=== PATIENT | female | born 1980 | race Caucasian/White ===

== ENCOUNTER 2016-08-19 09:30 | Inpatient (IN) | payer OTHER ==
[2016-08-19 13:11] LABS: URINE APPEARANCE CLOUDY; URINE BILIRUBIN NEGATIVE (NEGATIVE); URINE COLOR STRAW; URINE GLUCOSE (UA) NEGATIVE (NEGATIVE); URINE KETONE NEGATIVE (NEGATIVE); URINE NITRITE NEGATIVE (NEGATIVE); URINE PROTEIN NEGATIVE (NEGATIVE); URINE UROBILINOGEN NEGATIVE E.U./dl (0.2-1.0)
[2016-08-19 13:12] LABS: URINE BLOOD 3+ (NEGATIVE); URINE LEUK ESTERASE 2+ (NEGATIVE)
[2016-08-19 13:14] LABS: URINE WBC 29 /hpf (3-5)
--- NOTE | 2016-08-19 22:30 | HP ---
Past Medical History - Primary Care Physician PCP:: David Delaney - Admission Chief Complaint: 39 weeks, ama, labor History of Present Illness: 36 yo f , edc by sono 08/21/2016 39.5 weeks in labor, cx 9 cm 100 vx 0 mi fhr cat 1 contraction strong History Source: Patient Limitations to Obtaining History: No Limitations - Past Medical History ...: 4 ...Para: 3 ...Term: 3 ...LMP: 11/14/15 ... Weeks Gestation by Dates: 39.6 ...EDC by Dates: 08/20/16 ...EDC by Sono: 08/21/16 Heme/Onc: Yes: Anemia - Past Surgical History Hx Myomectomy: No Hx Transabdominal Cerclage: No - Smoking History Smoking history: Never smoked - Alcohol/Substance Use Hx Alcohol Use: No - Social History History of Recent Travel: No Home Medications - Allergies Allergies/Adverse Reactions: Allergies Allergy/AdvReac Type Severity Reaction Status Date / Time No Known Allergies Allergy Verified 07/29/16 05:03 - Home Medications Home Medications: Ambulatory Orders Vit/Iron Fumarate/FA [ Tablet] 1 each PO DAILY 03/06/16 Ferrous Sulfate [Feosol] 325 mg PO DAILY 08/19/16 Review of Systems - Review of Systems Constitutional: reports: No Symptoms Eyes: reports: No Symptoms HENT: reports: No Symptoms Neck: reports: No Symptoms Cardiovascular: reports: No Symptoms Respiratory: reports: No Symptoms Gastrointestinal: reports: Abdominal Pain Breasts: reports: No Symptoms Reported Musculoskeletal: reports: No Symptoms Integumentary: reports: No Symptoms Neurological: reports: No Symptoms Endocrine: reports: No Symptoms Hematology/Lymphatic: reports: No Symptoms Psychiatric: reports: No Symptoms Physical Exam - Maternity Vital Signs: Vital Signs Temperature 98.4 F 08/19/16 10:58 Pulse Rate 77 08/19/16 12:41 Respiratory Rate 20 08/19/16 12:41 Blood Pressure 137/66 08/19/16 12:41 O2 Sat by Pulse Oximetry (%) - Abdominal Exam/OB Number of Fetuses: Single Presentation: Vertex Contractions: Yes Regularity: Irregular Intensity: Strong Monitor Mode: External Heart Rate Location: [facility] Category: I Accelerations: Uniform - Vaginal Exam/OB Vaginal Bleediing: Bloody Show Speculum Exam: No Dilatation (cm): 9 cm Effacement (%): 100 Amniotic Membrane Status: Intact Presentation: Vertex/Position Station: 0 - Physical Exam Musculoskeletal: Yes: WNL Extremities: Yes: WNL Edema: Yes Edema: LLE: Trace, RLE: Trace Deep Tendon Reflex Grade: Normal +2 ...Motor Strength: WNL Psychiatric: Yes: WNL Hemorrhage Risk Assessment - Risk Factors High Risk Factors: Yes: None Risk Score: 0 Risk Level: Low Risk Problem List - Problems (1) with 39 completed weeks gestation Code(s): Z3A.39 - 39 WEEKS GESTATION OF (2) Labor established Code(s): VHQ4539 - (3) Advanced maternal age (AMA) in Code(s): XUW7234 - Assessment/Plan plan admit, fh monitoring, GBS negative
[2016-08-19 22:31] VITALS: BMI 32.5
[2016-08-19 22:38] LABS: BASOPHIL 0.6 % (0-2.0); EOSINOPHIL 0.6 % (0-4.5); MCH 23.6 pg (25.7-33.7); MCHC 32.1 g/dl (32.0-36.0); MEAN CELL VOLUME 73.6 fl (80-96); MEAN PLT VOLUME 11.4 fl (7.5-11.1); PLATELET COUNT 232 K/MM3 (134-434); RDW 14.9 % (11.6-15.6); WHITE BLOOD COUNT 9.3 K/mm3 (4.0-10.0)
[2016-08-19] MEDS ORDERED: ELECTROLYTE-148 SOLN 1,000 ML IV SCH (22:45)
[2016-08-19 22:52] LABS: INR 0.88 (0.82-1.09); PROTHROMBIN TIME (PATIENT) 9.7 SEC (9.98-11.88)
[2016-08-19] MEDS: IBUPROFEN 600 MG TABLET (FP) PO PRN (23:00)
[2016-08-19] MEDS: ACETAMINOPHEN 325 MG TABLET (FP) PO PRN (23:00)
[2016-08-19 23:01] LABS: CALCIUM 8.3 mg/dL (8.5-10.1); COCKROFT - GAULT 161.177; CREATININE 0.6 mg/dL (0.55-1.02)
[2016-08-19] MEDS ORDERED: METHYLERGONOVINE MALEATE 0.2 MG/1 ML AMP IM PRN (23:08)
[2016-08-19] MEDS ORDERED: WITCH HAZEL 50% (TUCKS) 40 PAD/JAR PAD TP PRN (23:08)
[2016-08-19] MEDS ORDERED: BENZOCAINE 20% 57 GM BOTTLE TP PRN (23:08)
[2016-08-19] MEDS ORDERED: BENZOCAINE 28 GM HEMORRHOIDAL OINTMENT TP PRN (23:08)
[2016-08-19] MEDS ORDERED: BISACODYL 10 MG SUPP.RECT RC PRN (23:08)
[2016-08-19] MEDS ORDERED: oxyCODONE HCL 5 MG TABLET PO PRN (23:08)
[2016-08-19] MEDS ORDERED: D5W-LR W/ 20 UNITS OXYTOCIN 1,000 ML IV SCH (23:15)
[2016-08-20 00:15] LABS: SGPT/ALT 12 U/L (12-78); URIC ACID 5.1 mg/dL (2.6-7.2)
[2016-08-20] MEDS ORDERED: LABETALOL HCL 200 MG TABLET (FP) PO ONE (00:15)
[2016-08-20] MEDS ORDERED: ONDANSETRON 4 MG/2 ML VIAL IVPB PRN (01:47)
[2016-08-20] MEDS ORDERED: ONDANSETRON 4 MG/2 ML VIAL ONE (02:05)
[2016-08-20] MEDS: IBUPROFEN 600 MG TABLET (FP) PO PRN ×2 (03:28→09:12)
[2016-08-20] MEDS: ACETAMINOPHEN 325 MG TABLET (FP) PO PRN ×2 (03:28→09:10)
[2016-08-20 08:27] LABS: BASOPHIL 0.3 % (0-2.0); MCHC 31.6 g/dl (32.0-36.0); MEAN CELL VOLUME 72.9 fl (80-96); MEAN PLT VOLUME 11.5 fl (7.5-11.1); NEUTROPHILS 79.9 % (42.8-82.8); PLATELET COUNT 176 K/MM3 (134-434); RDW 14.8 % (11.6-15.6); WHITE BLOOD COUNT 13.6 K/mm3 (4.0-10.0)
[2016-08-20] MEDS: FERROUS SO4 325 MG TABLET (FP) PO SCH ×2 (09:09→23:24)
[2016-08-20] MEDS: PRENATAL VITAMINS W/ FOLIC ACID TABLET (FP) PO SCH (09:10)
[2016-08-20] MEDS ORDERED: SENNOSIDES/DOCUSATE COMBO (SENNA PLUS) TABLET (UD) PO PRN (22:00)
[2016-08-21] MEDS: FERROUS SO4 325 MG TABLET (FP) PO SCH (09:42)
[2016-08-21] MEDS: PRENATAL VITAMINS W/ FOLIC ACID TABLET (FP) PO SCH (09:43)
--- NOTE | 2016-08-21 10:18 | PN ---
Progress Note (short form) - Note Progress Note: ppd 2 no excess vaginal bleeding, no dizziness , ambulating well CBC, BMP 08/20/16 08:00 08/19/16 22:15 Last Vital Signs Temp Pulse Resp BP Pulse Ox 98.2 F 79 20 139/76 08/20/16 22:04 08/20/16 22:04 08/20/16 22:04 08/20/16 22:04 abdomen soft, uterus firm , non tender lochia minimal no calf tenderness plan d/c home on po iron, vit if diziness, excess vaginal bleeding to ER follow up [facility] 4 weeks
[2016-08-21 11:37] VITALS: BP 132/85; PULSE 82; TEMP 98
== END 2016-08-21 11:25 | disposition home or self-care (01) | DRG 560 ==
LOC: JDEL 09:30 → JLDR 22:00 → MERGE 22:00 → J3W 08-20 01:20
PROVIDERS: ADMIT Obstetrics & Gynecology; ATTEND Obstetrics & Gynecology
PROC: 10E0XZZ Delivery of Products of Conception, External Approach (ICD-10-PCS; principal; 2016-08-19)
PROC: 0HQ9XZZ Repair Perineum Skin, External Approach (ICD-10-PCS; 2016-08-19)
DX: O70.0 First degree perineal laceration during delivery (principal); Z3A.39 39 weeks gestation of pregnancy; Z37.0 Single live birth
CPT/HCPCS: 36415; 59409; 80048; 81003; 81015; 82977; 83010; 84450; 84460; 84550; 85025; 85044; 85610; 85730; 86593; 86850; 86900; 86901